=== PATIENT | male | born 1985 | race Caucasian/White ===

== ENCOUNTER 2023-08-23 08:55 | Emergency (ER) | payer SELFPAY ==
[2023-08-23 09:06] VITALS: BP 125/79; PULSE 87; RESP 18; TEMP 36.9; O2SAT 100; BMI 18.2
[2023-08-23 10:11] LABS: IDNOW Serial# 08D9AD1C; Strep A Nucleic Acid Positive (Negative)
[2023-08-23 10:35] LABS: Influenza A PCR NEGATIVE (Negative); Influenza B PCR NEGATIVE (Negative); Resp Syncy Virus RNA Qual PCR NEGATIVE (Negative); SARS COV2 PCR INHOUSE NEGATIVE (Negative)
[2023-08-23 11:09] VITALS: BP 126/72; PULSE 82; TEMP 37.1; O2SAT 99
--- NOTE | 2023-08-23 11:22 | ED.URI ---
HPI - URI/Sore Throat General Chief Complaint: Upper Respiratory Symptoms Stated Complaint: Swollen throat? Hard to talk/swallow Time Seen by Provider: 08/23/23 11:02 Source: patient, RN notes reviewed and old records reviewed Mode of arrival: ambulatory Limitations: no limitations History of Present Illness ED Provider: ALLAN FRANKEL HPI Narrative: 38-year-old male without significant past medical history presents to the ED today for evaluation of sore throat which began on waking yesterday morning. Endorses pain with swallowing. He has not taken any [id number]-[id number] medications for this at Denies fever, chills, difficulty swallowing, rashes, cough, N/V, abdominal pain. Denies known sick contacts. MD elicited complaint: sore throat Onset (ago): day(s) Consistency: constant Related Data Previous Rx's ?Medication ?Instructions ?Recorded benzocaine 15 mg-menthol 2.6 mg 1 chacho mucous membrane Q2-4H PRN 08/23/23 lozenges (Cepacol Sore Throat sore throat #16 ea (benzocaine-menthol)) penicillin V potassium 500 mg 500 mg PO BID 10 days #20 tabs 08/23/23 tablet Allergies Allergy/AdvReac Type Severity Reaction Status Date / Time No Known Allergies Allergy Verified 08/23/23 09:11 Review of Systems Review of Systems: Constitutional: No fever, chills, fatigue, night sweats, weight changes ENT/Mouth: No ear pain, hearing loss, nasal congestion, sinus pain, rhinorrhea, +sore throat, +odynophagia, No dysphagia Eyes: No eye pain, swelling, redness, vision changes, discharge Cardio: No chest pain, palpitations, CASTELLANOS, orthopnea, peripheral edema Pulm: No SOB, cough, sputum, wheezing, dyspnea, hemoptysis GI: No nausea, vomiting, hematemesis, abdominal pain, diarrhea, constipation, hematochezia, melena : No irregular bleeding, dysuria, frequency, urgency, hesitancy, hematuria, flank pain MSK: No back pain, neck pain, joint pain, myalgias Skin: No lesions, rashes Neuro: No weakness, numbness, paresthesias, LOC, dizziness, headache All other systems reviewed and are negative. [facility] Past Medical History Attestation statement: The following information was validated with the patient. Source: old records reviewed and nursing notes reviewed Social History Social History Advance Directives: No Advance Directives Information Provided: Yes Do you have a plan to hurt others: No Plan Physical Exam Vital Signs: Vital Signs: Last Vital Signs Temp 98.8 F 08/23/23 11:09 Pulse 82 08/23/23 11:09 Resp 18 08/23/23 09:06 BP 126/72 08/23/23 11:09 Pulse Ox 99 08/23/23 11:09 O2 Del Method Room Air 08/23/23 11:09 BMI result Body Mass Index 18.2 Vital signs stable, afebrile Const: General: cooperative, healthy appearing, comfortable and no acute distress Orientation/consciousness: patient oriented x3 Limitations: no limitations HEENT: Other: + Posterior oropharynx erythematous. No tonsillar edema or tonsillar exudates. No peritonsillar masses. No stridor. Uvula midline. Controlling secretions and speaking in complete sentences. Head: Yes normal to inspection, Yes No palpable skull fracture present, Yes normocephalic and Yes atraumatic Ears: hearing grossly normal bilaterally, external ears normal, TM's normal bilaterally, EAC's normal, mastoids normal and no periauricular adenopathy General nose exam: Normal external nose present and No nasal discharge present Face and sinus: Yes normal facial exam and Yes sinuses nontender Mouth: Normal oral and palatal mucosa present Eyes: General: appearance normal, both eyes and all related structures Conjunctivae: conjunctivae normal Sclerae: sclerae normal Pupils: Equal, round and reactive pupils present Neck: Other: No cervical lymphadenopathy. No anterior neck swelling. Neck: Yes normal visual inspection, Yes full ROM and Yes no meningeal signs Resp: Effort & Inspection: normal respiratory effort and able to speak in complete sentences Auscultation: clear to auscultation bilaterally Cardio: Rate: regular rate Rhythm: regular rhythm GI: Inspection: Yes normal to inspection Palpation (GI): Soft to palpation and nontender Skin: General skin exam: no rashes or lesions noted Neuro: General: patient oriented x3, gait normal, moves all extremities and no meningeal signs Cranial nerves: Yes Equal, round and reactive pupils present Extrem: General: Yes normal to inspection Course Course Course Narrative: 1130-- patient has tested negative for COVID, flu, RSV. He did test positive for strep pharyngitis which is consistent with exam findings. There is no concern for peritonsillar abscess or retropharyngeal abscess. Airways patent. There is no respiratory distress. He was given 10 of Decadron in the ED. discussed all workup results with patient. Will send Cepacol throat lozenges and penicillin to pharmacy for treatment. He is agreeable with this. Patient has remained stable throughout ED visit today. Discussed worrisome signs and symptoms and when to return to the ED. All questions answered at this time. Patient is agreeable with disposition and stable for discharge. Medical Decision Making Medical Decision Making [facility] Narrative: 38-year-old male without significant past medical history presents to the ED today for evaluation of sore throat which began on waking yesterday morning. Vital signs stable, afebrile. He is nontoxic appearing in no acute distress. No stridor or muffled voice. Airway patent. Posterior oropharynx erythematous. No tonsillar edema or peritonsillar masses. No tonsillar exudates. Uvula midline. Controlling secretions and speaking in complete sentences. Bilateral EACs and TMs WNL. No cervical lymphadenopathy noted. No anterior neck swelling. Lungs are CTA bilaterally. No nuchal rigidity or meningeal signs. Differential diagnosis includes strep throat, viral syndrome, pharyngitis. Unlikely mono, STRIKER OFF, retropharyngeal abscess, dental abscess, epiglottitis, pneumonia, Rell's angina, meningitis. Plan for viral and strep swabs. Differential Diagnosis Differential Diagnoses: The differential diagnosis associated with the presentation includes as above. Admission/Observation Not indicated Lab Data [facility] Lab Attestation statement: I reviewed the patient's lab results. as above Labs: Lab Results 08/23/23 Range/Units 09:35 Influenza Type A (PCR) NEGATIVE (Negative) Influenza Type B (PCR) NEGATIVE (Negative) RSV RNA Qual (PCR) NEGATIVE (Negative) SARS-CoV-2 RNA (RT-PCR) NEGATIVE (Negative) S. pyogenes GrpA ILA Positive A (Negative) External Record Review External record reviewed: Inpatient record Tests considered The following testing was considered but not selected: I considered obtaining CT soft tissue neck however there is no concern for deep tissue infection, not warranted at this time. Prescription Management I considered prescription management with: Pain Medication (Cepacol throat lozenges) and Antibiotic (Penicillin) Social Determinants Patient?s care significantly limited by Social Determinants of Health including: Other Social Determinant of Health Critical Care Time Critical Care Time Critical Care Time: No Discharge Plan Discharge Clinical Impression: Acute pneumococcal pharyngitis Patient Disposition: Home, Self-Care Instructions: Pharyngitis (ED) Additional Instructions: You were seen in the ED today for evaluation of sore throat. You tested negative for covid, flu, and rsv. You tested positive for strep throat. Penicillin is an antibiotic that has been sent to your pharmacy. Take this twice daily for the next 10 days to treat strep throat. Do not stop taking these antibiotics early or miss any doses as this may cause infection to return or worsen. Cepacol throat lozenges have been sent to your pharmacy to help with throat pain. You may also purchase wcvg-iyv-[id number] chloraseptic spray to numb your throat. Take Tylenol and ibuprofen as needed for body aches or fevers. Make sure to change your toothbrush as this contains bacteria. Strep throat is contagious. If anyone else in your household is exhibiting symptoms, please advise them to come to the ED, urgent care, or to see their primary care provider. Follow up with your primary care provider as needed. Return to the emergency department if your symptoms persist or worsen despite treatment or if you have difficulty swallowing, opening your mouth, or develop a rash. In the case of emergency, call 911.? Prescriptions: New penicillin V potassium 500 mg tablet 500 mg PO BID 10 Days Qty: 20 0RF Cepacol Sore Throat (jenifer-men) 15-2.6 mg lozenge 1 chacho mucous membrane Q2-4H PRN (Reason: sore throat) Qty: 16 0RF Stand Alone Forms: Work/School Release Print Language: Faroese
[2023-08-23] MEDS: dexAMETHasone sod phosphate 10 MG/ML VIAL IVPUSH (11:38)
[2023-08-23 11:40] VITALS: BP 126/72; PULSE 82; RESP 18; TEMP 37.1; O2SAT 99
--- NOTE | 2023-08-23 11:40 | PC.NURSE ---
pt medicated per order,
== END 2023-08-23 11:41 | disposition home or self-care (01) ==
PROVIDERS: Emergency Provider Emergency Medicine
DX: J02.8 Acute pharyngitis due to other specified organisms (principal); B95.3 Streptococcus pneumoniae as the cause of diseases classified elsewhere; Z03.818 Encounter for observation for suspected exposure to other biological agents ruled out
CPT/HCPCS: 0241U; 87651; 99283; J1100

== ENCOUNTER 2024-10-25 11:48 | Emergency (ER) | payer OTHER, SELFPAY ==
--- NOTE | ~2024-10-25 | XR_ITS ---
EXAMINATION: XR WRIST, RIGHT CLINICAL INFORMATION: tenderness over distal radius COMPARISON: None available. TECHNIQUE: PA, lateral, and oblique views of the right wrist. Scaphoid view. FINDINGS: Carpal bones are intact. Alignment is normal. No lytic or blastic lesions. No subcutaneous emphysema. No metallic or radiopaque foreign body. Distal radius and ulna are intact. XR/XR wrist RT min 3V IMPRESSION: No acute fracture or dislocation. Negative exam. Electronically signed by: Kd Spicer MD 10/25/2024 12:38 PM EDT
--- NOTE | ~2024-10-25 | XR_ITS ---
EXAMINATION: XR HAND, RIGHT CLINICAL INFORMATION: tenderness over anatomical snuff box COMPARISON: None available. TECHNIQUE: PA, lateral, and oblique views of the right hand. FINDINGS: Metacarpal bones are intact. Phalanges are intact with normal alignment. No lytic or blastic lesions. No metallic or radiopaque foreign body. No subcutaneous emphysema. No calcifications within the soft tissues. XR/XR hand RT min 3V IMPRESSION: No acute fracture or dislocation. Negative examination. Electronically signed by: Kd Spicer MD 10/25/2024 12:37 PM EDT
--- NOTE | 2024-10-25 12:01 | ED.GENADULT ---
HPI - General Adult General Chief complaint: Extremity Injury, Upper Stated complaint: fall @ work, R hand injury Time Seen by Provider: 10/25/24 12:20 Source: patient, RN notes reviewed and old records reviewed Mode of arrival: ambulatory Limitations: no limitations History of Present Illness ED Provider: Sachin HPI narrative: Patient is a 39-year-old right hand dominant male presenting to the ED with complaint of right hand injury sustained at work yesterday around 2pm. States he slipp and fell onto his right outstretched hand to break his fall. Denies head strike or LOC. Ring removed from R 4th finger in triage. Tried to go to work today but was having too much pain and left. Denies numbness/tingling. ROM limited due to pain. MD complaint: right hand and wrist pain Onset (ago): day(s) Related Data Previous Rx's ?Medication ?Instructions ?Recorded benzocaine 15 mg-menthol 2.6 mg 1 chacho mucous membrane Q2-4H PRN 08/23/23 lozenges (Cepacol Sore Throat sore throat #16 ea (benzocaine-menthol)) penicillin V potassium 500 mg 500 mg PO BID 10 days #20 tabs 08/23/23 tablet Allergies Allergy/AdvReac Type Severity Reaction Status Date / Time No Known Allergies Allergy Verified 10/25/24 12:03 Review of Systems Review of Systems: As per HPI Yes all other systems are reviewed and are negative Constitutional: Constitutional: Reports as per HPI [facility] Social History Social History Advance Directives: No Advance Directives Information Provided: Yes Do you have a plan to hurt others: No Plan Physical Exam ED Vital Signs: Vital Signs - 24 hr 10/25/24 12:02 Temperature 98.4 F Pulse Rate 99 Respiratory Rate 20 Blood Pressure 131/62 Pulse Oximetry 100 Oxygen Delivery Method Room Air BMI result Body Mass Index 18.0 Vital signs have been reviewed and appear to be correct. Blood pressure normal. Heart rate normal. Respiratory rate normal. Temperature normal. Oxygen saturation normal. Const General: cooperative, healthy appearing and no acute distress Orientation/consciousness: oriented to person, oriented to place, oriented to time and patient oriented x3 Limitations: no limitations HENMT Head: Yes normocephalic and Yes atraumatic Ears: external ears normal General nose exam: Normal external nose present Face and sinus: Yes face symmetric Mouth: oropharynx normal and moist mucous membranes Throat: Yes uvula midline Eyes Pupils: Equal, round and reactive pupils present Neck Neck: Yes normal visual inspection and Yes supple Resp Effort & Inspection: normal respiratory effort and able to speak in complete sentences Auscultation: clear to auscultation bilaterally Cardio Rate: regular rate Rhythm: regular rhythm Heart sounds: S1 normal heart sound present and S2 normal heart sound present GI Palpation (GI): Soft to palpation and nontender Auscultation: normoactive bowel sounds General: Yes no CVA tenderness Back/Spine/Pelvis Back: no CVA tenderness Skin General skin exam: elasticity normal and turgor normal Neuro General: oriented to person, oriented to place, oriented to time, patient oriented x3, moves all extremities, no focal motor deficits and CN's II-XI intact bilaterally Cranial nerves: Yes Equal, round and reactive pupils present Cognition (Neuro): normal cognition Extrem General: Yes full ROM, Yes no pedal edema and Yes no calf tenderness Right upper extremity: wrist Details: normal to inspection, tenderness Location: of the distal radius and of the anatomic snuffbox, abnormal ROM (decreased due to pain) and normal vascular exam; no ecchymosis and Extremity exam: right hand Details: normal to inspection, normal capillary refill, neurosensory exam normal, tenderness Location: of the dorsal hand Location: over the 1st metacarpal and over the 2nd metacarpal, vascular exam Details: radial pulse present and normal capillary refill, normal ROM of fingers and no swelling; no ecchymosis Psych Mental Status: mental status grossly normal Affect: normal affect Thought process: Normal thought process present Course Course Course Narrative: This is a rapid medical exam performed by Ismael Stephenson NP: Additional HPI, ROS, PE not included below will be deferred to primary provider. Patient is a 39-year-old right hand dominant male presenting to the ED with complaint of right hand injury sustained at work yesterday around 2pm. States he fell onto his right outstretched hand. Ring removed from R 4th finger in triage. Tenderness to distal radius, anatomical snuff box. Plan: xrays Medical Decision Making Medical Decision Making [facility]DM Narrative: Patient is a 39-year-old right hand dominant male presenting to the ED with complaint of right hand injury sustained at work yesterday around 2pm. On exam patient is awake, A+Ox3, VS WNL, afebrile, normal neurological exam without focal deficits, physical exam findings as above. Given reported symptoms and physical exam findings, initial differential includes but is not limited to right wrist or hand strain, sprain, fracture. X-rays of right hand and wrist notable for no acute fracture. My interpretation is in agreement with the radiologist's interpretation. Clinically, patient is exquisitely tender over the anatomical snuffbox, concern for scaphoid fracture not visualized on x-ray. Patient placed in thumb spica splint and referred to orthopedics. [facility] also [facility]. Advised Tylenol, ibuprofen, ice, elevation. Advised patient that he should not bear weight with his right hand at work until cleared by Orthopedics. Return precautions discussed. Patient verbalized understanding of and agreement with plan. Differential Diagnosis Differential Diagnoses: The differential diagnosis associated with the presentation includes As per [facility] Admission/Observation Consideration of admission/observation: Escalation of care including admission/observation considered Patient would have been admitted to the hospital had their clinical presentation warranted hospital admission. Independent Interpretation I performed an independent interpretation of an: Plain X-Ray Interpretation: X-rays of right hand and wrist are without evidence of acute fracture, however, clinically patient has tenderness over anatomical snuffbox, still have concern for scaphoid fracture Radiology Impression Discussion of test interpretation with radiology: I have reviewed the radiologist's reading. Radiologist Impression: XR/XR wrist RT min 3V IMPRESSION: No acute fracture or dislocation. Negative exam. XR/XR hand RT min 3V IMPRESSION: No acute fracture or dislocation. Negative examination. External Record Review External record reviewed: Inpatient record, Office record and Outpatient record Discharge Plan Discharge Clinical Impression: Right wrist sprain Qualifiers: Encounter type: initial encounter Wrist sprain location: other location Qualified Code(s): S63.591A - Other specified sprain of right wrist, initial encounter Patient Disposition: Home, Self-Care Instructions: Wrist Injury (ED), Wrist Sprain (ED) Additional Instructions: You were evaluated in the emergency department today for right hand and wrist pain after a work-related injury. Your x-rays did not show evidence of fractures, however, based on your physical exam findings there is still a concern for a scaphoid fracture. You were placed in a splint at today's visit, keep this on until you follow-up with orthopedics. You are being referred to orthopedics for further evaluation and management of your symptoms. You can take 600 mg of ibuprofen or 650 mg of Tylenol every 6 hours as needed for pain. You can also apply ice to the affected area for 10-15 minutes at a time several times daily, using caution not to apply ice directly to the skin. You can also follow-up with [facility]. Return to the emergency department if you develop worsening pain, new numbness, weakness, tingling, change of color in your hand or any other new or concerning symptoms. [facility] [address] [place] [address] Prescriptions: No Action penicillin V potassium 500 mg tablet 500 mg PO BID 10 Days Qty: 20 0RF Cepacol Sore Throat (jenifer-men) 15-2.6 mg lozenge 1 chacho mucous membrane Q2-4H PRN (Reason: sore throat) Qty: 16 0RF [place] [facility] [place] [facility] [place]Provider Group] Referral Note: c/f scaphoid fracture Clinical Impression: Right wrist sprain Stand Alone Forms: Work/School Release Print Language: Norwegian
[2024-10-25 12:02] VITALS: BP 131/62; PULSE 99; RESP 20; TEMP 36.9; O2SAT 100; BMI 18.0
--- OUTSIDE RECORDS SUMMARY | 2024-10-25 12:54 | XMS_ITS | Clinical Summary ---
Author Organization [facility] Address [address] [place] [id number] Care Team Providers Care Wire Puller Name Role Phone Unavailable Primary Care Provider Unavailabl e Social History Tobacco Use Types Packs/Day Years Used Date Smoking Tobacco: Never Assessed Sex and Gender Information Value Date Recorded Sex Assigned at Not on file Legal Sex Male 8:17 PM EDT Gender Identity Not on file Sexual Orientation Not on file Plan of Treatment Not on file
--- NOTE | 2024-10-25 13:34 | PC.NURSE ---
thumb spika applied at this time per [employer] request. Pt tolerated well
[2024-10-25 13:45] VITALS: BP 131/62; PULSE 99; RESP 20; TEMP 36.9; O2SAT 100
== END 2024-10-25 13:46 | disposition home or self-care (01) ==
PROVIDERS: Emergency Provider Emergency Medicine
DX: S63.591A Other specified sprain of right wrist, initial encounter (principal); M25.531 Pain in right wrist; X50.0XXA Overexertion from strenuous movement or load, initial encounter; Y93.9 Activity, unspecified; Y92.9 Unspecified place or not applicable; Y99.0 Civilian activity done for income or pay
CPT/HCPCS: 73110; 73130; 99283

== ENCOUNTER → 2024-10-25 12:07 | Outpatient (BNV) | payer OTHER, SELFPAY | PROVIDERS: Emergency Provider Emergency Medicine; Visit Provider Radiology Diagnostic Radiology | DX: M79.641 Pain in right hand (principal); M25.531 Pain in right wrist | CPT/HCPCS: 73110; 73130 ==

== ENCOUNTER 2024-11-07 08:41 | Outpatient (REF) | payer OTHER, SELFPAY ==
--- NOTE | ~2024-11-07 | XR_ITS ---
EXAMINATION: XR WRIST NAVICULAR RIGHT HISTORY: M79.641 - Pain in right hand COMPARISON: Comparison is made with the prior examination dated 10/25/2024. FINDINGS: Four views of the right wrist including a scaphoid view are submitted. Osseous mineralization is normal. There is no fracture or dislocation. The joint spaces are preserved. The soft tissues are unremarkable. XR/XR wrist RT w scaphoid IMPRESSION: Unremarkable examination of the right wrist. Electronically signed by: Rene Gee MD 11/07/2024 11:11 AM EDT
--- OUTSIDE RECORDS SUMMARY | 2024-11-07 08:54 | XMS_ITS | Clinical Summary ---
Author Organization [facility] Address [address] [place] [id number] Care Team Providers Care Mold Holder Name Role Phone Unavailable Primary Care Provider [...]
== END 2024-11-07 08:42 | disposition home or self-care (01) ==
LOC: HO.HOSX 08:41
DX: S62.001A Unspecified fracture of navicular [scaphoid] bone of right wrist, initial encounter for closed fracture (principal); X58.XXXA Exposure to other specified factors, initial encounter; Y99.0 Civilian activity done for income or pay
CPT/HCPCS: 25622; 73110; 99202

== ENCOUNTER 2024-11-07 10:43 | Outpatient (AMB) | payer OTHER, SELFPAY ==
[2024-11-07 10:55] VITALS: BMI 17.9
--- NOTE | 2024-11-07 10:55 | MHC.OFFVIS ---
Vital Signs 11/07/24 10:55 Height 5 ft 10 in Weight 125 lb BMI 17.9 Intake Visit Reasons: ED-RT Wrist Sprain, ?Scaphoid Fx, WC: 10/24/24 Intake Note: Willi is a 39 year old right hand dominant male who presents today as a new patient after presenting to [facility] ED for evaluation of work-related injury to his right wrist, DOI: 10/24/24. At the ED he was diagnosed with a right wrist sprain and possible scaphoid fracture. He was placed on a thumb spica brace and advised to take Ibuprofen or Tylenol as needed. Today, patient complains of pain all around the wrist and on the radial aspect of the right hand, radiating to the right forearm with associated tingling on the 2nd, 3rd, and 4th digit. He continues taking Ibuprofen and Tylenol with some relief. Denies previous injuries or surgeries to the right hand. Allergies No Known Allergies Allergy (Verified 11/07/24 10:56) HPI HPI ED-RT Wrist Sprain, ?Scaphoid Fx, WC: 10/24/24: Details: Willi is a 39 year old right hand dominant male who presents today as a new patient after presenting to [facility] ED for evaluation of work-related injury to his right wrist, DOI: 10/24/24. At the ED he was diagnosed with a right wrist sprain and possible scaphoid fracture. He was placed on a thumb spica brace and advised to take Ibuprofen or Tylenol as needed. Today, patient complains of pain all around the wrist and on the radial aspect of the right hand, radiating to the right forearm with associated tingling on the 2nd, 3rd, and 4th digit. He continues taking Ibuprofen and Tylenol with some relief. Denies previous injuries or surgeries to the right hand. [facility] Social History (Updated 11/07/24 @ 11:01 by EMORY Trevizo) Patient Tobacco Use Status: Current everyday Tobacco user Current occupational status: employed Current occupation: [employer], rt handed Review of Systems Const All systems reviewed & are unremarkable except as noted in HPI and below Physical Exam Vital Signs: BMI result Body Mass Index 17.9 Extrem Other: Patient is alert, oriented, and in no acute distress. Neuro: Normal sensation of the tips of all digits of the right hand at this time Vascular: Cap refill brisk Pain: Mild tenderness to palpation of right anatomical snuffbox Significant tenderness to palpation of right scaphoid tubercle Minimal tenderness to palpation of radial or ulnar styloid ROM: Patient is able to make a closed fist with the right hand Skin: No lacerations or abrasions. General: No ecchymosis, erythema, or evidence of infection. Psych: Appears grossly normal Affect normal Attitude cooperative Office Procedures AMB Fracture Care Fracture Billing Code: Fracture Billing Code Casting/Splints 51355-Qyzd/Wrist Cast Application Procedure code (CPT) selection complete Results Reviewed Results Reviewed: X-rays obtained in the office today and independently reviewed by me, Walter Valdivia PA-C, demonstrate nondisplaced scaphoid tubercle fracture of the right wrist. Assessment & Plan Assessment & Plan (1) Nondisplaced fracture of right scaphoid bone: Code(s): S62.001A - Unspecified fracture of navicular [scaphoid] bone of right wrist, initial encounter for closed fracture Category: Medical Plan 1. Scaphoid tubercle fracture of the right wrist Date of injury 10/24/2024 Patient is educated about this injury Patient is educated about the typical treatment course No surgical intervention indicated at this time Patient is placed into a thumb spica cast Patient is educated on proper cast care and precautions 1 lb weight limit reinforced with the patient Patient will need to be held out of work until follow-up, as he works in an environment where the temperature is approximately 20 degrees at all times, and he will not be able to put gloves on over a cast Patient understands this and is amenable to this plan Follow-up in 4 weeks with repeat x-rays for reassessment, anticipate cast removal at that time, sooner with any acute concerns Orders: Orders XR wrist RT w scaphoid Today M79.641 - Pain in right hand Coding Level of Care Code New Pt Level 3 (52944) Diagnoses Nondisplaced fracture of right scaphoid bone S62.001A CPT Codes Fracture Care - Fracture Billing Code: Fracture Billing Code ([id number]) Casting - CPT: 68584-Nlje/Wrist Cast Application ([id number])
== END 2024-11-07 11:46 | disposition home or self-care (01) ==
LOC: HO.HOS 10:43
DX: S62.001A Unspecified fracture of navicular [scaphoid] bone of right wrist, initial encounter for closed fracture (principal)
CPT/HCPCS: 25622; 99203

== ENCOUNTER → 2024-11-07 10:46 | Outpatient (BNV) | payer OTHER, SELFPAY | PROVIDERS: Visit Provider Radiology Diagnostic Radiology | DX: M79.641 Pain in right hand (principal) | CPT/HCPCS: 73110 ==

== ENCOUNTER 2024-12-05 11:34 | Outpatient (REF) | payer OTHER, SELFPAY ==
--- NOTE | ~2024-12-05 | XR_ITS ---
CLINICAL HISTORY: M79.641 - Pain in right hand 4 view right wrist Comparison: DX/SR - XR WRIST NAVICULAR RIGHT - 11/07/24 10:46 EDT CR/SR - XR WRIST 3 OR MORE VIEWS RIGHT - 10/25/24 12:32 EDT CR/SR - XR HAND 3 OR MORE VIEWS RIGHT - 10/25/24 12:32 EDT Findings: No fractures or dislocations. No significant loss of joint space, osteophyte, or erosions. No radiopaque foreign body. IMPRESSION: 1. No acute findings This document has been electronically signed by: David Dumont MD on 12/06/2024 12:42:30
== END 2024-12-05 11:35 | disposition home or self-care (01) ==
LOC: HO.HOSX 11:34
DX: S62.001A Unspecified fracture of navicular [scaphoid] bone of right wrist, initial encounter for closed fracture (principal); X58.XXXA Exposure to other specified factors, initial encounter; Y99.0 Civilian activity done for income or pay
CPT/HCPCS: 29085; 73110; 99212

== ENCOUNTER 2024-12-05 14:16 | Outpatient (AMB) | payer OTHER, SELFPAY ==
--- NOTE | 2024-12-05 14:36 | A.OFFVIS_ITS ---
Vital Signs 12/05/24 14:39 Height 5 ft 10 in Weight 125 lb BMI 17.9 Intake Visit Reasons: OV-RT Wrist Sprain, Scaphoid Fx, WC: 10/24/24 Intake Note: Willi is a 39 year old right hand dominant male who presents today for follow up of his work-related injury status post Right Wrist Scaphoid Tubercle Fracture, DOI: 10/24/24. At his last visit he was placed in a thumb spica cast and advised to maintain a 1lb muhammad limit. Patient was also held out of work until follow- up. Cast was removed today in office for updated x-rays. Patient reports today concern of increase in pain since his cast was placed. When I asked why didn't he patient call us for a replacement if needed he says he just deals with it. Reports his right wrist has been swelling daily and his thumb accompanied by an increase in pain in the the thumb as well. Numbness and tingling radiating throughut his 2nd, 3rd, 4th and 5th digits of the right hand. Allergies No Known Allergies Allergy (Verified 12/05/24 14:38) HPI HPI OV-RT Wrist Sprain, Scaphoid Fx, WC: 10/24/24: Details: Willi is a 39 year old right hand dominant male who presents today for follow up of his work-related injury status post Right Wrist Scaphoid Tubercle Fracture, DOI: 10/24/24. At his last visit he was placed in a thumb spica cast and advised to maintain a 1lb muhamamd limit. Patient was also held out of work until follow- up. Cast was removed today in office for updated x-rays. Patient reports today concern of increase in pain since his cast was placed. When I asked why didn't he patient call us for a replacement if needed he says he just deals with it. Reports his right wrist has been swelling daily and his thumb accompanied by an increase in pain in the the thumb as well. Numbness and tingling radiating throughut his 2nd, 3rd, 4th and 5th digits of the right hand. [facility] Medical History (Updated 12/05/24 @ 14:38 by CLAY Apodaca) Nondisplaced fracture of right scaphoid bone (~10/24/24) Social History Patient Tobacco Use Status: Current everyday Tobacco user Current occupational status: employed Current occupation: [employer], rt handed Review of Systems Const All systems reviewed & are unremarkable except as noted in HPI and below Physical Exam Vital Signs: BMI result Body Mass Index 17.9 Extrem Other: Patient is alert, oriented, and in no acute distress. Neuro: Normal sensation of the tips of all digits of the right hand at this time Vascular: Cap refill brisk Pain: Mild tenderness to palpation of right anatomical snuffbox Significant tenderness to palpation of right scaphoid tubercle Minimal tenderness to palpation of radial or ulnar styloid ROM: Patient is able to make a closed fist with the right hand Skin: No lacerations or abrasions. General: No ecchymosis, erythema, or evidence of infection. Psych: Appears grossly normal Affect normal Attitude cooperative Office Procedures Casting/Splints 88621-Ievn/Wrist Cast Application Procedure code (CPT) selection complete Results Reviewed Results Reviewed: X-rays obtained in the office today and independently reviewed by me, Walter Valdivia PA-C, demonstrate nondisplaced scaphoid tubercle fracture of the right wrist. Assessment & Plan Assessment & Plan (1) Nondisplaced fracture of right scaphoid bone: Onset Date: ~10/24/24 Code(s): S62.001A - Unspecified fracture of navicular [scaphoid] bone of right wrist, initial encounter for closed fracture Category: Medical Plan 1. Scaphoid tubercle fracture of the right wrist Date of injury 10/24/2024 Patient is educated about this injury Patient is educated about the typical treatment course No surgical intervention indicated at this time Patient is placed into a thumb spica cast Patient is educated on proper cast care and precautions MRI ordered to assess for potential occult right scaphoid waist fracture, as the patient is still experiencing significant snuffbox tenderness and this is not consistent with the visualized fracture 1 lb weight limit reinforced with the patient Patient will need to be held out of work until follow-up, as he works in an environment where the temperature is approximately 20 degrees at all times, and he will not be able to put gloves on over a cast Patient understands this and is amenable to this plan Follow-up in 4 weeks with repeat x-rays for reassessment, anticipate cast removal at that time, sooner with any acute concerns Orders: Orders MR wrist RT wo con 12/05/24 S62.001A - Unspecified fracture of navicular [scaphoid] bone of right wrist, initial encounter for closed fracture XR wrist RT w scaphoid 12/05/24 M79.641 - Pain in right hand Coding Level of Care Code Est Pt Level 3 (24453) Diagnoses Nondisplaced fracture of right scaphoid bone S62.001A CPT Codes Casting - CPT: 88378-Elpp/Wrist Cast Application ([id number])
[2024-12-05 14:39] VITALS: BMI 17.9
== END 2024-12-05 15:47 | disposition home or self-care (01) ==
LOC: HO.HOS 14:17
DX: S62.001A Unspecified fracture of navicular [scaphoid] bone of right wrist, initial encounter for closed fracture (principal)
CPT/HCPCS: 29085; 99024

== ENCOUNTER → 2024-12-05 14:18 | Outpatient (BNV) | payer OTHER, SELFPAY | PROVIDERS: Visit Provider Radiology Diagnostic Radiology | DX: M25.531 Pain in right wrist (principal) | CPT/HCPCS: 73110 ==

== ENCOUNTER 2024-12-18 08:25 | Emergency (ER) | payer OTHER, SELFPAY ==
[2024-12-18 08:30] VITALS: BP 127/72; PULSE 87; RESP 18; TEMP 37.1; O2SAT 100; BMI 18.8
--- NOTE | 2024-12-18 08:49 | ED.EXTPRO ---
HPI - Extremity Problem General Chief complaint: Extremity Problem Stated complaint: Fractured r hand, tingling in fingers, inf? Time Seen by Provider: 12/18/24 08:48 Source: patient, family and old records reviewed Mode of arrival: ambulatory Limitations: no limitations History of Present Illness ED Provider: JOHNIE POLANCO Narrative: 39 yo male with PMH of R wrist injury 10/24 s/p xrays with concern for scaphoid fracture has been in thumb spica cast x 2 since injury and sees our orthopedics department. He has had tingling in his fingers since then. He has had his cast replaced by Shea WANG. He comes in today as they state he has a lot of burning and itching under the cast. He doesn't know when his MRI is. He notes his palm is discolored and he is very itchy under it. Complaint: other Onset (ago): month(s) (almost 2 months) Pain Consistency: constant Location: right and upper extremity Quality: burning Radiation: distal Relieving factors: nothing Exacerbating factors: nothing Associated symptoms: rash Context: other Related Data Home Medications ?Medication ?Instructions ?Recorded ?Confirmed lurasidone 20 mg tablet (Latuda) 20 mg PO DAILY 11/07/24 Allergies Allergy/AdvReac Type Severity Reaction Status Date / Time No Known Allergies Allergy Verified 12/18/24 08:38 Review of Systems Review of Systems: Yes all other systems are reviewed and are negative [facility] Past Medical History Attestation statement: The following information was validated with the patient. Source: old records reviewed Medical History Nondisplaced fracture of right scaphoid bone (~10/24/24) Social History Social History Patient Tobacco Use Status: Current everyday Tobacco user Advance Directives: Yes Advance Directives Information Provided: Yes Advance Directives on File: No Current occupational status: employed Current occupation: [employer], rt handed Physical Exam Vital Signs: Vital Signs: Last Vital Signs Temp 98.7 F 12/18/24 08:30 Pulse 87 12/18/24 08:30 Resp 18 12/18/24 08:30 BP 127/72 12/18/24 08:30 Pulse Ox 100 12/18/24 08:30 O2 Del Method Room Air 12/18/24 08:30 BMI result Body Mass Index 18.8 Appearance: Alert. Oriented X3. No acute distress. Eyes: Pupils equal, round and reactive to light. ENT: Pharynx normal. Neck: Normal inspection. CVS: Pulses normal. Respiratory: No respiratory distress. Abdomen: atraumatic Skin: Skin warm and dry. Normal skin color. R palm - cast is intact, there is no redness, swelling, BCR in all digits, hand is warm to touch, there is a scaling rash on palm consistent with dermatitis and discoloration likely due to thickened skin and not washing hand. There is no warmth. He reports tingling in all fingers. He can wiggle fingers. Extremities: No lower extremity edema. Neuro: Oriented X 3. No motor deficit. No sensory deficit. Medical Decision Making Medical Decision Making MDM Narrative: 39 yo male R hand dominant known R scaphoid fracture from October under the care of ortho with persistent pain, tingling due for MRI he comes in today with c/o itching under cast and dermatitis reaction. He has already had his cast replaced. At this time he is at his baseline neuro exam no signs of infection. Will attempt to get him clinic follow up. I do not see infection or anything that warrants stat removal of cast. Differential Diagnosis Differential Diagnoses: The differential diagnosis associated with the presentation includes dermatitis Consult Healthcare Provider Management of the patient was discussed with: Lace Weaver donna in clinic now per hilda WANG Independent Historian Clinical information obtained from an independent historian. History obtained from or confirmed by: Spouse External Record Review External record reviewed: Outpatient record and Prior outpatient radiology Prescription Management I considered prescription management with: Other Discharge Plan Discharge Clinical Impression: Dermatitis Patient Disposition: Home, Self-Care Instructions: Dermatitis (ED) Additional Instructions: please follow up with orthopedics the rash and itching is dermatitis from the cast can apply very minimal aquaphor to the area you can see on the palm for itching you can take as needed benadryl. walk over to ortho clinic Prescriptions: No Action lurasidone [Latuda] 20 mg tablet 20 mg PO DAILY Rx Instructions: must administer with food (at least 350 calories) Print Language: St Helenian
[2024-12-18 09:32] VITALS: BP 127/72; PULSE 87; RESP 18; TEMP 37.1; O2SAT 100
--- OUTSIDE RECORDS SUMMARY | 2024-12-18 10:14 | XMS_ITS | Clinical Summary ---
Author Organization [facility] Address [address] [place] [id number] Care Team Providers Care Railroad Repairer Name Role Phone Unavailable Primary Care Provider [...]
== END 2024-12-18 09:32 | disposition home or self-care (01) ==
PROVIDERS: Emergency Provider Emergency Medicine
DX: L30.9 Dermatitis, unspecified (principal); L29.9 Pruritus, unspecified; S62.001A Unspecified fracture of navicular [scaphoid] bone of right wrist, initial encounter for closed fracture; X58.XXXA Exposure to other specified factors, initial encounter; Y93.9 Activity, unspecified; Y92.9 Unspecified place or not applicable; Y99.9 Unspecified external cause status
CPT/HCPCS: 29085; 99212; 99282

== ENCOUNTER 2024-12-18 09:36 | Outpatient (AMB) | payer OTHER, SELFPAY ==
--- NOTE | 2024-12-18 10:01 | MHC.OFFVIS ---
Intake Visit Reasons: Cast change Intake Note: Willi is a 39 year old right hand dominant male who presents today for a cast change status post work-related injury of a right wrist scaphoid tubercle fracture, DOI: 10/24/24. Today patient reports numbness in his fingers and a burning sensation in his palm/wrist area. Allergies No Known Allergies Allergy (Verified 12/18/24 10:16) HPI HPI Cast change: Details: Patient comes into the office today for right cast change of the hand PFSH Medical History Nondisplaced fracture of right scaphoid bone (~10/24/24) Social History Patient Tobacco Use Status: Former Tobacco user Current occupational status: employed Current occupation: [employer], rt handed Office Procedures AMB Fracture Care Fracture Billing Code: Fracture Billing Code Assessment & Plan Assessment & Plan (1) Nondisplaced fracture of right scaphoid bone: Onset Date: ~10/24/24 Code(s): S62.001A - Unspecified fracture of navicular [scaphoid] bone of right wrist, initial encounter for closed fracture Category: Medical Plan: Patient was placed in a thumb spica cast and is awaiting MRI Coding Level of Care Code Global (11369) Diagnoses Nondisplaced fracture of right scaphoid bone S62.001A CPT Codes Fracture Care - Fracture Billing Code: Fracture Billing Code ([id number])
== END 2024-12-18 11:44 | disposition home or self-care (01) ==
PROVIDERS: Visit Provider Physician Assistant
DX: S62.001A Unspecified fracture of navicular [scaphoid] bone of right wrist, initial encounter for closed fracture (principal)
CPT/HCPCS: 29085; 99213

== ENCOUNTER 2025-01-15 19:25 | Outpatient (REF) | payer OTHER, SELFPAY ==
--- NOTE | ~2025-01-15 | MR_ITS ---
CLINICAL HISTORY: S62.001A - Unspecified fracture of navicular [scaphoid] bone of right wr... --- Additional Notes or Special Instructions: Scaphoid fracture MR right wrist without gadolinium Comparison: DX - XR WRIST RT W SCAPHOID - 12/05/24 14:18 EDT Findings: Bone marrow edema of the lunate lateral aspect, coronal image number 13 of 22. No joint effusion. Lunotriquetral and scapholunate ligaments are intact. Flexor and extensor tendons are intact. No triangular fibrocartilage complex tears. The flexor retinaculum is intact. Median and ulnar nerves are normal. IMPRESSION: 1. Bone marrow edema of the lateral aspect of the lunate; osseous contusion. 2. No navicular bone fracture identified. This document has been electronically signed by: Ruben Miller MD on 01/15/2025 21:08:38
== END 2025-01-15 19:26 | disposition home or self-care (01) ==
LOC: HO.MRI 19:25
DX: S62.001D Unspecified fracture of navicular [scaphoid] bone of right wrist, subsequent encounter for fracture with routine healing (principal)
CPT/HCPCS: 73221

== ENCOUNTER → 2025-01-15 19:35 | Outpatient (BNV) | payer OTHER, SELFPAY | PROVIDERS: Visit Provider Radiology Diagnostic Radiology | DX: S62.001A Unspecified fracture of navicular [scaphoid] bone of right wrist, initial encounter for closed fracture (principal); R60.0 Localized edema | CPT/HCPCS: 73221 ==

== ENCOUNTER 2025-01-24 10:42 | Outpatient (AMB) | payer OTHER, SELFPAY ==
[2025-01-24 10:52] VITALS: BMI 18.8
--- NOTE | 2025-01-24 10:52 | MHC.OFFVIS ---
Vital Signs 01/24/25 10:52 Height 5 ft 10 in Weight 131 lb BMI 18.8 Intake Visit Reasons: O/V rt hand MRI rev. Intake Note: Willi is a 39 year old right hand dominant male who presents today for a follow up visit status post work-related injury of a right wrist scaphoid tubercle fracture, DOI: 10/24/24. Patient was last seen with Jackelyn Lyon on 12/18/24 for a cast change and was awaiting MRI. Today he is here for his MRI review. IMPRESSION: 1. Bone marrow edema of the lateral aspect of the lunate; osseous contusion. 2. No navicular bone fracture identified. Allergies No Known Allergies Allergy (Verified 01/24/25 10:56) HPI HPI O/V rt hand MRI rev.: Details: Willi is a 39 year old right hand dominant man who presents for an MRI review of his right wrist sprain, DOI: 10/24/24. This is a workplace injury. He complains of pain in his wrist still, worse with any motion. He says he had some pain when trying to sweep his floor at home. He says he has not been using his wrist for any activities, and has been in a short-arm thumb spica cast for the past 2 months. 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 He says his work does not have light duty available [facility] Medical History Nondisplaced fracture of right scaphoid bone (~10/24/24) Social History Patient Tobacco Use Status: Former Tobacco user Current occupational status: employed Current occupation: [employer], rt handed Review of Systems Const All systems reviewed & are unremarkable except as noted in HPI and below Physical Exam Vital Signs: BMI result Body Mass Index 18.8 Const General: cooperative, healthy appearing and no acute distress Orientation/consciousness: patient oriented x3 HEENT Head: Yes normocephalic and Yes atraumatic Eyes EOM: EOMs intact bilaterally Resp Effort & Inspection: normal respiratory effort and able to speak in complete sentences Cardio Jugular venous distension: no JVD Skin General skin exam: turgor normal Rashes: no rashes Neuro General: patient oriented x3 Extrem Other: Evaluation of Right Upper Extremity: The patient is alert, oriented, and in no acute distress Neuro: Median, Ulnar, Radial nerves motor and sensory intact and sensation is normal to the tips of all digits Vascular: Cap refill brisk ROM: He can make a fist and extend all his digits Full pronosupination Skin: No lacerations or abrasions. General: No Ecchymosis. No Erythema or evidence of infection. I evaluated him again after his cast was removed: He had only very mild tenderness over the proximal and ulnar aspect of the lunate. He had somewhat more discomfort with active and passive wrist flexion extension and radial and ulnar deviation, likely because he has been in a cast for the past 2 months. No scaphoid tubercle or snuffbox tenderness Radiographs: 3 views of the right wrist from 12/06/24 were reviewed by me today in clinic. They show no fractures or dislocations Right wrist MRI: IMPRESSION: 1. Bone marrow edema of the lateral aspect of the lunate; osseous contusion. 2. No navicular bone fracture identified. This document has been electronically signed by: Ruben Miller MD on 01/15/2025 Psych Appearance: grossly normal Affect: normal affect Attitude: cooperative Assessment & Plan Assessment & Plan (1) Right wrist sprain: Code(s): S63.501A - Unspecified sprain of right wrist, initial encounter Category: Medical Qualifiers: Encounter type: initial encounter Wrist sprain location: other location Qualified Code(s): S63.591A - Other specified sprain of right wrist, initial encounter (2) Stiffness of right wrist joint: Code(s): M25.631 - Stiffness of right wrist, not elsewhere classified Category: Medical (3) Contusion of right wrist: Code(s): S60.211A - Contusion of right wrist, initial encounter Category: Medical Plan Assessment & Plan: 1. Right wrist lunate contusion, S/P fall 2. Right wrist sprain, S/P fall DOI: ~10/24/24 This is a workplace injury 3. Right wrist stiffness Secondary to time in a cast This has been managed conservatively in a cast since his DOI I educated him about this condition I discussed treatment options He appears to be healing well. I discontinued his cast today. I recommend activity modification & OT hand therapy, and he is in agreement He was fitted for a velcro wrist splint, to be worn when out of the house with daily activities for the next few weeks He will remove his splint at home with normal lightweight activities I discussed activity modifications, he is to lift nothing heavier than ~5lbs for the next 2 weeks, then advance weight as tolerated. They should also avoid any heavy impact activities, falls, or sports activities for the next 4 weeks I ordered OT hand therapy to work on stretching, strengthening, and normalizing function. 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 He will follow up in 4 weeks for a ROM check, and discuss RTW status Scribed for Yasemin Ruiz MD by Niko Vásquez, medical device sales consultant, on 01/24/25 at 11:15 AM, EST. Orders: Orders OT Evaluation and Treatment Today M25.631 - Stiffness of right wrist, not elsewhere classified, S60.211A - Contusion of right wrist, initial encounter, S63.591A - Other specified sprain of right wrist, initial encounter Coding Level of Care Code Est Pt Level 4 (20420) Diagnoses Right wrist sprain S63.591A Encounter type: initial encounter Wrist sprain location: other location Stiffness of right wrist joint M25.631 Contusion of right wrist S60.211A
== END 2025-01-24 11:23 | disposition home or self-care (01) ==
LOC: HO.HOS 10:42
PROVIDERS: Visit Provider Orthopaedic Surgery
DX: S63.591A Other specified sprain of right wrist, initial encounter (principal); M25.631 Stiffness of right wrist, not elsewhere classified; S60.211A Contusion of right wrist, initial encounter
CPT/HCPCS: 99213

== ENCOUNTER → 2025-01-24 10:42 | Outpatient (BNVA) | payer OTHER, SELFPAY | PROVIDERS: Visit Provider Orthopaedic Surgery | DX: S63.591D Other specified sprain of right wrist, subsequent encounter (principal); M25.631 Stiffness of right wrist, not elsewhere classified; S60.211D Contusion of right wrist, subsequent encounter | CPT/HCPCS: 99212 ==

== ENCOUNTER 2025-02-23 11:40 | Outpatient (AMB) | payer OTHER, SELFPAY ==
--- NOTE | 2025-02-23 11:53 | A.OFFVIS_ITS ---
Intake Visit Reasons: OV - WC Right Wrist Sprain 10/24/24 Intake Note: Willi is a 39 year old right hand dominant male who presents today for a Follow Up Visit status post Right Wrist Scaphoid Tubercle Fracture from a work related injury, DOI: 10/24/24. He was last seen by Dr. Ruiz on 01/24/25. At that time he was transitioned to a Velcro wrist brace to be worn when out of the house and with daily activities for the upcoming few weeks. He was advised to lift nothing heavier than ~5lbs for 2 weeks, then advance weight as tolerated. He was also advised to avoid any heavy impact activities, falls, or sports activities for 4 weeks. Referred to occupational therapy. Patient reports ongoing pain, stiffness and tightness. He has been attending OT and was told to d/c use of brace, only use at night. He has concerns of continued throbbing pain with at home exercises, applying pressure, making a fist and gripping items. Allergies No Known Allergies Allergy (Verified 02/23/25 12:04) HPI HPI OV - WC Right Wrist Sprain 10/24/24: Details: Willi is a 39 year old right hand dominant male who presents today for a Follow Up Visit status post Right Wrist Scaphoid Tubercle Fracture from a work related injury, DOI: 10/24/24. He was last seen by Dr. Ruiz on 01/24/25. At that time he was transitioned to a Velcro wrist brace to be worn when out of the house and with daily activities for the upcoming few weeks. He was advised to lift nothing heavier than ~5lbs for 2 weeks, then advance weight as tolerated. He was also advised to avoid any heavy impact activities, falls, or sports activities for 4 weeks. Referred to occupational therapy. Patient reports ongoing pain, stiffness and tightness. Patient states that his pain is worse than it was when he was previously seen by Dr. Ruiz 4 weeks ago. He has been attending OT and was told to d/c use of brace, only use at night. He has concerns of continued throbbing pain with at home exercises, applying pressure, making a fist and gripping items. Patient states he is unable to put any significant pressure through of the right hand and wrist at this time. [facility] Medical History Nondisplaced fracture of right scaphoid bone (~10/24/24) Social History Patient Tobacco Use Status: Former Tobacco user Current occupational status: employed Current occupation: [employer], rt handed Review of Systems Const All systems reviewed & are unremarkable except as noted in HPI and below Physical Exam Const General: cooperative, healthy appearing and no acute distress Orientation/consciousness: patient oriented x3 HEENT Head: Yes normocephalic and Yes atraumatic Eyes EOM: EOMs intact bilaterally Resp Effort & Inspection: normal respiratory effort and able to speak in complete sentences Cardio Jugular venous distension: no JVD Skin General skin exam: turgor normal Rashes: no rashes Neuro General: patient oriented x3 Extrem Other: Evaluation of Right Upper Extremity: The patient is alert, oriented, and in no acute distress Neuro: Median, Ulnar, Radial nerves motor and sensory intact and sensation is normal to the tips of all digits Vascular: Cap refill brisk ROM: He can make a fist and extend all his digits Full pronosupination Skin: No lacerations or abrasions. General: No Ecchymosis. No Erythema or evidence of infection. He has [id number]-dbjekius tenderness over the proximal and ulnar aspect of the lunate. He had somewhat more discomfort with active and passive wrist flexion extension and radial and ulnar deviation, likely because he has been in a cast for the past 2 months. No scaphoid tubercle or snuffbox tenderness Psych Appearance: grossly normal Affect: normal affect Attitude: cooperative Assessment & Plan Assessment & Plan (1) Right wrist sprain: Code(s): S63.501A - Unspecified sprain of right wrist, initial encounter Category: Medical Qualifiers: Encounter type: initial encounter Wrist sprain location: other location Qualified Code(s): S63.591A - Other specified sprain of right wrist, initial encounter (2) Stiffness of right wrist joint: Code(s): M25.631 - Stiffness of right wrist, not elsewhere classified Category: Medical (3) Contusion of right wrist: Code(s): S60.211A - Contusion of right wrist, initial encounter Category: Medical Plan Assessment & Plan: 1. Right wrist lunate contusion, S/P fall 2. Right wrist sprain, S/P fall DOI: ~10/24/24 This is a workplace injury 3. Right wrist stiffness Secondary to time in a cast This has been managed conservatively in a cast since his DOI I educated him about this condition I discussed treatment options He appears to be healing well. No further casting I recommend activity modification & OT hand therapy, and he is in agreement Continue with OT He was fitted for a velcro wrist splint at previous visit, and should continue to wear this at night and when his wrist is particularly bothering him Due to ongoing pain, I do feel it is best for the patient to see Dr. Ruiz on 1 more occasion prior to return to work, given the nature of his work and the heavy lifting that he has to do Patient will follow-up in [address] Ruiz, anticipate return to work full duty at that time, sooner with any acute concerns Coding Level of Care Code Est Pt Level 3 (50110) Diagnoses Right wrist sprain S63.591A Encounter type: initial encounter Wrist sprain location: other location Stiffness of right wrist joint M25.631 Contusion of right wrist S60.211A
== END 2025-02-23 12:25 | disposition home or self-care (01) ==
LOC: HO.HOS 11:40
DX: S63.591A Other specified sprain of right wrist, initial encounter (principal); M25.631 Stiffness of right wrist, not elsewhere classified; S60.211A Contusion of right wrist, initial encounter
CPT/HCPCS: 99213

== ENCOUNTER → 2025-02-23 11:40 | Outpatient (BNVA) | payer OTHER, SELFPAY | DX: S63.501D Unspecified sprain of right wrist, subsequent encounter (principal); M25.631 Stiffness of right wrist, not elsewhere classified; S60.211D Contusion of right wrist, subsequent encounter; X58.XXXD Exposure to other specified factors, subsequent encounter | CPT/HCPCS: 99212 ==